=== PATIENT | female | born 1995 | race Caucasian/White ===

== ENCOUNTER 2023-09-22 07:10 | Emergency (ER) | payer BC, SELFPAY ==
[2023-09-22] VITALS (9 sets, daily range): BP systolic 116–151; BP diastolic 76–93; BMI 25.3
--- NOTE | 2023-09-22 07:26 | ED.GENMED ---
History of Present Illness
General
Chief Complaint: Throat Problem
Source: patient
Exam Limitations: none
Time Seen by Provider: 09/22/23 07:18
Nursing documentation reviewed up to this point in time: agreed with
History of Present Illness
History of Present Illness:
28-year-old female with no past medical history states she developed a fever 5 days ago, the next day she developed bilateral sore throat which has gotten progressively worse and her fevers persist. She went to urgent care yesterday had negative
strep a and her strep is pending. She denies N/V/C, hide watery diarrhea in the beginning but her stools have since become more formed and soft. She has a 4-year-old daughter that had a sore throat and fever 8 days ago but was better within 24
hours.
Past History
Past History
ED Past Medical History: None
ED Past Surgical History: None
Social History
Tobacco: Non-smoker
Alcohol: None
Personal:
Living: with family
Employment: Employed
Review of Systems
Review of Systems
Allergies reviewed?: Yes
All Other Systems: ROS reviewed and negative except as documented in HPI and ROS
Constitutional: Reports fever and fatigue; Denies chills
EENT: Reports sore throat
Respiratory: Denies trouble breathing
Cardiac: Denies chest pain
ABD/GI: Reports diarrhea (initially, but stools becoming more formed); Denies abdominal pain, nausea or vomiting
: Reports no symptoms
Musculoskeletal: Reports no symptoms
Skin: Reports no symptoms
Neurological: Reports no symptoms
Phy Exam
Physical Exam
Physical Exam:
GENERAL: No acute distress. A&Ox3.
CONSTITUTIONAL:Temp 99 3
EYES: clear, conjunctivae normal
Neck: Supple, tender non palpable node cervical
ENMT: moist mucus membranes, Pharynx: Bilateral moderate tonsillar swelling, not touching, uvula mildly swollen, no exudate. Swallowing well but with pain, speaking with 'hot potato voice.' No trismus. TMs normal.
RESPIRATORY: Regular respirations, nonlabored, lungs clear. Tachycardic rate 129
CARDIOVASCULAR: Regular rate and rhythm, no murmurs, no rubs.
GI: Soft, nontender, normal BS
MUSCULOSKELETAL: Moves with ease. Well perfused.
SKIN: Warm, dry, pink
PSYCH: Normal mood and affect. Well kept, interactive and appropriate
NEUROLOGIC: Awake, alert and oriented. No focal neurological deficits
Course
Orders/Labs/Results
Orders:
Orders
09/22/23 07:23
COVID-19 Antigen Urgent
Source: Nasal Swab
Rapid Strep Group A Urgent
MAHESH Source: Throat/Pharynx
Specimen Description:
Date Specimen was Collected: 09/22/23
Time Specimen was Collected: 07:19
09/22/23 07:26
Monotest Urgent
09/22/23 07:29
0.9% Sodium Chloride 1000 ml [Nss] 1,000 ml IV BOLUS
Ketorolac [Toradol] 15 mg IV NOW STA
09/22/23 07:33
Dexamethasone Sod Phosphate [Decadron] 10 mg IV NOW STA
09/22/23 07:36
Complete Blood Count/With Diff Urgent
Comprehensive Metabolic Panel Urgent
Throat Culture [Throat Culture, Comprehensive] Urgent
MAHESH Source: Throat/Pharynx
Specimen Description:
Date Specimen was Collected: 09/22/23
Time Specimen was Collected: 07:34
Abnormal Lab Results
09/22/23 09/22/23
07:26 07:36
WBC 15.4 H 10^3/uL
(4.8-10.8)
Hgb 11.9 L g/dL
(12.0-16.0)
Hct 34.8 L %
(37.0-47.0)
MCV 80.4 L fL
(81.0-99.0)
Abs Immat Gran (auto) 0.1 H 10^3/uL
(0-0.05)
Absolute Neuts (auto) 11.9 H 10^3/uL
(1.4-6.5)
Absolute Monos (auto) 1.2 H 10^3/uL
(0.1-0.6)
Immature Gran % 0.7 H %
(0-0.5)
Neutrophils % 77.3 H %
(42.2-75.2)
Lymphocytes % 13.2 L %
(20.5-51.1)
Glucose 102 H mg/dl
(70-99)
Monoscreen Positive A
(Negative)
09/22/23 07:36
09/22/23 07:36
Vital Signs
Initial and Last Documented VS:
Initial Vital Signs
Temp Pulse Resp BP Pulse Ox
99.3 F 129 18 151/93 98
09/22/23 07:15 09/22/23 07:15 09/22/23 07:15 09/22/23 07:15 09/22/23 07:15
Last Documented Vital Signs
Temp Pulse Resp BP Pulse Ox
98.1 F 109 16 120/76 97
09/22/23 10:31 09/22/23 12:15 09/22/23 10:31 09/22/23 12:00 09/22/23 12:15
MDM/Problems Addressed
Differential Diagnosis Includes:
Strep pharyngitis, [place], peritonsillar abscess, retropharyngeal abscess
MDM/Problems Addressed:
28-year-old female with no past medical history states she developed a fever 5 days ago, the next day she developed bilateral sore throat which has gotten progressively worse and her fevers persist. She went to urgent care yesterday had negative
strep a and her strep is pending. She denies N/V/C, hide watery diarrhea in the beginning but her stools have since become more formed and soft. She has a 4-year-old daughter that had a sore throat and fever 8 days ago but was better within 24
hours.
CBC: WC 15.4 with elevated monocytes and neutrophils
CMP normal
COVID test is negative
11:30 a.m.
Monotest is positive.
Referral to PCP hotline sent
Pt appears comfortable, swallowing and speaking well. Stable for discharge
Rx for Prednisone sent to her pharmacy
*Critical Care Note
Total Time (30-74mins, 75-104mins- exclusive of procedures): Not Applicable
ED Attending Note
-
Portions of this chart may have been created with voice recognition software.� Occasional wrong word or��sound alike� substitutions may have occurred due to the inherent limitations of voice recognition software.
Discharge Plan
Departure
Patient Disposition: Home (Routine Discharge)
Date of Disposition: 09/22/23
Time of Disposition: 11:57
Patient with high blood pressure during this ER visit?: No
Condition: Good
Discharge Problem:
Acute pharyngitis, Mononucleosis
Instructions: Sore Throat, Adult (DC), Mononucleosis (DC)
Prescriptions:
No Action
No Current Medications
0
Referrals:
NONE,* [Family Provider] -
Activity Restrictions/Additional Instructions:
As we discussed, someone from this hospital will call you to help you arrange for a primary care provider.
Continue ibuprofen 600 mg every 6 hours as needed for pain.
You were given a steroid here today called Decadron 10 mg, this should help with the swelling and pain over the next 3 days.
Return here immediately for inability to swallow your saliva or difficulty breathing or feeling more swelling in the throat.
For next 6 weeks, Avoid any impact to the left side and if this should occur, seek medical care immediately for increasing pain in the area as it could indicate injury to the spleen
Interventions
Interventions:
*Risk Screen - Suicide Last Done: 09/22/23 07:15
*General Assessment Last Done: 09/22/23 07:15
*Neglect/Abuse Screening Last Done: 09/22/23 07:15
ED- Fall Risk Assessment Last Done: 09/22/23 07:30
*ED COVID-19 Vaccine History Last Done: 09/22/23 07:15
*Nursing Disposition Last Done: 09/22/23 12:25
ED-EENT Assessment Last Done: 09/22/23 07:30
ED- Pulmonary Assessment Last Done: 09/22/23 07:30
Discharge Date and Time
Discharge Date/Time: 09/22/23 12:26
Print Language: PALESTINIAN
[2023-09-22] MEDS: DECADRON 10 MG IV (07:36)
[2023-09-22] MEDS: TORADOL 15 MG IV (07:37)
[2023-09-22] MEDS: NSS 1000 IV (07:37)
[2023-09-22 07:51] LABS: % Basophils 0.5 % (0-2); % Eosinophils 0.6 % (0-6); % Immature Granulocytes 0.7 % (0-0.5); % Lymphocytes 13.2 % (20.5-51.1); % Monocytes 7.7 % (1.7-9.3); % Neutrophils 77.3 % (42.2-75.2); Absolute Basophils 0.1 10^3/uL (0-0.2); Absolute Eosinophils 0.1 10^3/uL (0-0.7); Absolute Immature Granulocytes 0.1 10^3/uL (0-0.05); Absolute Monocytes 1.2 10^3/uL (0.1-0.6); Absolute Neutrophils 11.9 10^3/uL (1.4-6.5); Hematocrit 34.8 % (37.0-47.0); Hemoglobin 11.9 g/dL (12.0-16.0); Mean Corp Hgb Conc. 34.2 g/dL (33.0-37.0); Mean Corpuscular Hgb 27.5 pg (27.0-31.0); Mean Corpuscular Volume 80.4 fL (81.0-99.0); Mean Platelet Volume 9.6 fL (7.4-10.4); Nucleated Red Blood Cells % 0 %; Platelet Count 351 10^3/uL (130-400); Red Blood Cell Count 4.33 10^6/uL (4.20-5.40); Red Cell Dist. Width 13.2 % (11.5-14.5); White Blood Cell Count 15.4 10^3/uL (4.8-10.8)
[2023-09-22 08:02] LABS: ALT (SGPT) 15 U/L (0-35); AST (SGOT) 18 U/L (14-36); Albumin 4.2 g/dl (3.5-5.0); Alkaline Phosphatase 77 U/L (38-126); Blood Urea Nitrogen 8 mg/dl (7-17); Calcium 9.2 mg/dl (8.4-10.2); Carbon Dioxide 26 mmol/L (22-30); Chloride 103 mmol/L (98-107); Glucose 102 mg/dl (70-99); Potassium 3.9 mmol/L (3.5-5.1); Sodium 141 mmol/L (135-145); Total Bilirubin 1.1 mg/dl (0.2-1.3); Total Protein 7.6 g/dl (6.3-8.2); eGFR > 60.00
[2023-09-22 08:05] LABS: COVID-19 Antigen Negative (Negative)
[2023-09-22 11:32] LABS: Monotest Positive (Negative)
== END 2023-09-22 12:26 | disposition home or self-care (01) ==
LOC: EMR 07:10
PROVIDERS: Registered Nurse; EMERGENCY PHYSICIAN Emergency Medicine
DX: J02.9 Acute pharyngitis, unspecified (principal); B27.90 Infectious mononucleosis, unspecified without complication
CPT/HCPCS: 99283; 96374; 96375; 96361; 80053; 85025; 86308; 87070; 87811; 87880

== ENCOUNTER 2024-04-19 02:16 | Day surgery (SDC) | payer BC, SELFPAY ==
[2024-04-18 18:34] VITALS: BP 133/79
[2024-04-18 18:53] LABS: % Basophils 0.2 % (0-2); % Eosinophils 1.5 % (0-6); % Immature Granulocytes 0.5 % (0-0.5); % Lymphocytes 21.4 % (20.5-51.1); % Monocytes 6.9 % (1.7-9.3); % Neutrophils 69.5 % (42.2-75.2); Absolute Eosinophils 0.2 10^3/uL (0-0.7); Absolute Immature Granulocytes 0.1 10^3/uL (0-0.05); Absolute Lymphocytes 2.6 10^3/uL (1.2-3.4); Absolute Monocytes 0.8 10^3/uL (0.1-0.6); Absolute Neutrophils 8.3 10^3/uL (1.4-6.5); Hematocrit 34.1 % (37.0-47.0); Hemoglobin 11.4 g/dL (12.0-16.0); Mean Corp Hgb Conc. 33.4 g/dL (33.0-37.0); Mean Corpuscular Hgb 28.1 pg (27.0-31.0); Mean Corpuscular Volume 84.2 fL (81.0-99.0); Mean Platelet Volume 9.5 fL (7.4-10.4); Nucleated Red Blood Cells % 0 %; Platelet Count 291 10^3/uL (130-400); Red Blood Cell Count 4.05 10^6/uL (4.20-5.40); Red Cell Dist. Width 13.4 % (11.5-14.5)
[2024-04-18 19:25] LABS: ALT (SGPT) 14 U/L (0-35); AST (SGOT) 17 U/L (14-36); Albumin 3.7 g/dl (3.5-5.0); Alkaline Phosphatase 64 U/L (38-126); Blood Urea Nitrogen 7 mg/dl (7-17); Calcium 9.1 mg/dl (8.4-10.2); Carbon Dioxide 22 mmol/L (22-30); Chloride 103 mmol/L (98-107); Glucose 94 mg/dl (70-99); Lipase 53 U/L (23-300); Potassium 3.7 mmol/L (3.5-5.1); Sodium 134 mmol/L (135-145); Total Bilirubin 0.5 mg/dl (0.2-1.3); Total Protein 6.8 g/dl (6.3-8.2); eGFR > 60.00
[2024-04-18 21:42] LABS: Erythrocyte Sed Rate 32 mm/hour (0-20)
[2024-04-18 22:00] VITALS: BP 111/69; BMI 30.3
--- NOTE | 2024-04-18 22:29 | ED.GENMED ---
History of Present Illness
General
Chief Complaint: Abdominal Pain
Source: patient
Exam Limitations: none
Time Seen by Provider: 04/18/24 21:18
History of Present Illness
History of Present Illness:
This is a 29-year-old female 17 weeks who presents with right lower quad abdominal pain. Patient states that she started with some generalized abdominal pain that she thought was maybe something she ate. Today the pain has persisted
and worsened over the last 48 hours into the right lower quadrant. The pain is getting a bit worse. No fevers. No vomiting. She did feel little 'queasy'. No stool changes. No dysuria.
Past History
Past History
ED Past Medical History: None
ED Past Surgical History: None
Social History
Tobacco: Non-smoker
Alcohol: None
Personal:
Living: with family
Employment: Employed
Phy Exam
Physical Exam
Physical Exam:
CONSTITUTIONAL Patient alert and oriented to person, place and time. Well-appearing. Vital signs reviewed.
HEAD atraumatic, normocephalic.
EYES eyelids normal to inspection, Extraocular muscles intact, Conjunctiva normal, Sclera normal.
NECK normal range of motion, Trachea midline, no jugular venous distention.
RESPIRATORY CHEST No respiratory distress noted, Chest expansion equal, Bilateral breath sounds clear.
CARDIOVASCULAR regular rate and rhythm, Heart sounds normal.
ABDOMEN gravid uterus, moderate right lower quadrant/McBurney's point tenderness. No distention. Normal bowel sounds
BACK normal inspection, no obvious deformities
UPPER EXTREMITY range of motion normal, Motor strength normal, no cyanosis, no edema.
LOWER EXTREMITY range of motion normal, Motor strength normal, no cyanosis, no edema.
NEURO Speech normal, No focal motor deficits, [place] coma scale 15, Memory normal, Cranial Nerves intact to screening exam.
SKIN skin warm, dry, and normal in color.
Course
Orders/Labs/Results
Orders:
Orders
04/18/24 18:39
US Abdomen - Appendix Only Urgent
Comment:
Reason For Exam: RLQ pain
US Limited Urgent
Reason For Exam: RLQ pain
04/18/24 18:45
C-Reactive Protein Urgent
Comment: ADD ON
Complete Blood Count/With Diff Urgent
Comprehensive Metabolic Panel Urgent
Erythrocyte Sed Rate Urgent
Comment: ADD ON
Lipase Urgent
04/18/24 21:20
Add On- LAB Urgent
Tests Added?: esr, CRP
04/18/24 22:39
Urinalysis Reflex To Culture Urgent
Date Specimen was Collected: 04/18/24
Time Specimen was Collected: 22:37
Urine Microscopic Reflex Cult Urgent
Urine Culture Urgent
MAHESH Source: U
Specimen Description:
Date Specimen was Collected: 04/18/24
Time Specimen was Collected: 22:37
04/19/24 00:00
MR Abdomen Without Contrast Urgent
Reason For Exam: RLQ abd pain, suspected appendicitis, 17 wks
OK for patient to be off Cardiac Monitoring for MRI: Yes
Recent pill cam endoscopy?: No
04/19/24 00:16
Ampicillin/Sulbactam 3 G [Unasyn] 3 gm 0.9% Sodium Chloride 100 ml [Nss] 100 ml IV NOW
Abnormal Lab Results
04/18/24 04/18/24
18:45 22:39
WBC 12.0 H 10^3/uL
(4.8-10.8)
RBC 4.05 L 10^6/uL
(4.20-5.40)
Hgb 11.4 L g/dL
(12.0-16.0)
Hct 34.1 L %
(37.0-47.0)
Abs Immat Gran (auto) 0.1 H 10^3/uL
(0-0.05)
Absolute Neuts (auto) 8.3 H 10^3/uL
(1.4-6.5)
Absolute Monos (auto) 0.8 H 10^3/uL
(0.1-0.6)
ESR 32 H mm/hour
(0-20)
Sodium 134 L mmol/L
(135-145)
Creatinine 0.5 L mg/dL
(0.6-1.0)
C-Reactive Protein 33.50 H mg/L
(0.0-10.00)
Urine Ketones 1+ A
(Negative)
Ur Occult Blood Reflex 2+ A
(Negative)
Leukocyte Esterase Rfl 2+ A
(Negative)
Urine WBC (Reflex) 16-20 A /HPF
(0-5)
Urine Bacteria (Reflex) Many A
(Negative)
Urine Yeast Moderate A
(Negative)
04/18/24 18:45
04/18/24 18:45
Vital Signs
Initial and Last Documented VS:
Initial Vital Signs
Temp Pulse Resp BP Pulse Ox
98.3 F 100 18 133/79 100
04/18/24 18:34 04/18/24 18:34 04/18/24 18:34 04/18/24 18:34 04/18/24 18:34
Last Documented Vital Signs
Temp Pulse Resp BP Pulse Ox
98.3 F 100 18 112/65 97
04/18/24 18:34 04/18/24 18:34 04/18/24 18:34 04/19/24 00:00 04/19/24 00:30
MDM/Problems Addressed
MDM/Problems Addressed:
Abdominal pain, second trimester , acute appendicitis
*Radiology
Radiology exam reviewed: radiology read reviewed
*Pulse Oximetry
Patient hypoxic: no
*Critical Care Note
Total Time (30-74mins, 75-104mins- exclusive of procedures): 35 minutes
Data Reviewed
Source: patient
Further Testing Considered But Not Given:
Consider CT but given her and ultrasound findings, will not proceed given the risks
Patient Management
Discussion with other providers: Shirt Ironer (Case discussed with general surgery) and Radiologist (Case discussed with radiology. Confirms appendicitis)
Escalation/DeEscalation of care consider admission/obs:
Case discussed with OB
29-year-old female who presents with right lower quadrant abdominal pain. Ultrasound suggest acute appendicitis. She also has an elevated white count, ESR and CRP. She does appear quite well. Question whether antibiotics alone will be sufficient
but will defer to general surgery.
Update Note
Update Note:
Patient seen by OB and case discussed several times with OB and surgery. MR confirms appendicitis. General surgery to take to the operating room
ED Attending Note
-
Portions of this chart may have been created with voice recognition software.� Occasional wrong word or��sound alike� substitutions may have occurred due to the inherent limitations of voice recognition software.
Discharge Plan
Departure
Patient Disposition: Admit
Date of Disposition: 04/18/24
Time of Disposition: 22:35
Admit to: Med/Surg and OR
Presentation/result/management discussed w/ accepting MD/DO: Dr Raymond
Discharge Problem:
Acute appendicitis
Prescriptions:
No Action
Vitamin 27 mg iron- 800 mcg Tablet
1 tab PO DAILY
Referrals:
NONE,* [Family Provider] -
Interventions
Interventions:
*Risk Screen - Suicide Last Done: 04/18/24 18:34
*General Assessment Last Done: 04/18/24 18:34
*Neglect/Abuse Screening Last Done: 04/18/24 18:34
ED- Fall Risk Assessment Last Done: 04/18/24 22:01
*ED COVID-19 Vaccine History Last Done: 04/18/24 18:34
YL-Lkhswc-Futumkjlwl Assessment Last Done: 04/18/24 22:01
Discharge Date and Time
Print Language: INDIAN
[2024-04-18 22:46] LABS: Urine Albumin Negative (Neg - Trace); Urine Bilirubin Negative (Negative); Urine Character Clear (Clear); Urine Color Yellow; Urine Glucose Negative (Negative); Urine Ketone 1+ (Negative); Urine Leukocyte 2+ (Negative); Urine Nitrite Negative (Negative); Urine Occult Blood 2+ (Negative); Urine Urobilinogen Negative (Neg - 1+)
[2024-04-18 22:52] LABS: Urine Squamous Cell >30 /LPF (Few)
[2024-04-18 22:54] LABS: Urine Red Blood Cell 0-2 /HPF (0-2)
[2024-04-18 22:55] LABS: Urine White Cell 16-20 /HPF (0-5)
[2024-04-18 22:56] LABS: Urine Bacteria Many (Negative); Urine Yeast Moderate (Negative)
[2024-04-18 23:00] VITALS: BP 118/72
--- NOTE | 2024-04-18 23:24 | CON.MD ---
Addendum entered and electronically signed by Laura German MD 04/19/24 07:39:
35 minutes spent in review of images, labs, discussion with patient and documentation
Original Note:
Consultation - Medical
-
29yo @ 17.0wks EDC 09/26/24, receives care at [facility], presented to this ED with c/o worsening abdominal pain over the last 2 days. Was generalized now isolated to RLQ. She has had nausea and decreased appetite. No emesis. She has no other bothersome
symptoms. No fever. She denies complications with this other than new finding of small fibroid.
PMHx: NOne
PSHx: NOne
POBHx: x2
All: NKDA
Shx: Neg x3
FHx: NC
Meds: PNV
Vitals and Labs Below.
Gen: lying in bed, nad
Abd: Per ED MD exam there is moderate ttp in the RLQ
Appendix US: Dilated tubular structure in the RLQ likely dilated appendix 1.1cm with wall thickening and mild hyperermia
US: Viable fetus, Anterior uterine fibroid 2.1cm, RAGINI nml, Cvx closed/Long. Right ovary 2.2cm. Left ovary not seen
UCx Pending.
A/P: 29yo @ 17.0wks with RLQ concern for appendicitis
- Case reviewed over TT with Gen Surg congressional assistant. Recommendation if appendicitis is confirmed is to proceed with surgery tonight. He would like patient to have a MRI first to confirm appendicitis prior to proceeding with surgery. Antibiotic therapy
alone is suboptimal mgmt and runs the risk for recurrence and/or appendiceal perforation which can increase risk for complications. This information was relayed to the patient. She is leaning toward surgery but wants to discuss with her
family first. I answered her questions the best I could but did explain that should she proceed with surgery, then Gen Surgeon will be in to review consents with her. Advised that the 2nd trimester is the safest time in to have surgery.
Reviewed that we will check FHR after the procedure. If she needed to be admitted then FHR is checked every day that she is here.
Vital Signs / Labs
-
Vital Signs and Labs:
Temp Pulse Resp BP Pulse Ox
98.3 F 100 18 118/72 98
04/18/24 18:34 04/18/24 18:34 04/18/24 18:34 04/18/24 23:00 04/18/24 23:00
04/18/24 18:45
04/18/24 18:45
04/18/24 04/18/24
18:45 22:39
WBC 12.0 H
RBC 4.05 L
Hgb 11.4 L
Hct 34.1 L
Abs Immat Gran (auto) 0.1 H
Absolute Neuts (auto) 8.3 H
Absolute Monos (auto) 0.8 H
ESR 32 H
Sodium 134 L
Creatinine 0.5 L
C-Reactive Protein 33.50 H
Urine Ketones 1+ A
Ur Occult Blood Reflex 2+ A
Leukocyte Esterase Rfl 2+ A
Urine WBC (Reflex) 16-20 A
Urine Bacteria (Reflex) Many A
Urine Yeast Moderate A
[2024-04-19] VITALS (14 sets, daily range): BP systolic 98–118; BP diastolic 52–74; BMI 30.2
[2024-04-19] MEDS: UNASYN IV (00:35)
--- NOTE | 2024-04-19 03:05 | CON.GS ---
Consultation
-
Requesting Provider: Mike
Performing Provider: Mandi
Reason for Consultation: Acute appendicitis
Medical History
-
Chief Complaint: Abd pain
History of Present Illness:
29F, 17 wks , with acute onset abd pain that began as generalized / khris-umblical pain and migrated toward the right lower quadrant. Pain began 2 days ago and is constant and progressive. Denies f/c/v, endorses nausea/anorexia. Denies
changes to urine or stool.
Past Medical History
Past Medical History: Reviewed & Noncontributory
Past Surgical History: Reviewed & Noncontributory
Social History
Tobacco: Non-Smoker
Alcohol: None
Drug: None
Personal:
Living: With Family
Employment: Employed
Family History
Family History: Reviewed & Noncontributory
Allergies / Home Medications
Allergy/AdvReac Type Severity Reaction Status Date / Time
No Known Allergies Allergy Verified 04/18/24 18:37
�Medication �Instructions �Recorded �Confirmed �Type
vits no.124-ferrous fum 1 tab PO DAILY 04/18/24 04/18/24 History
27 mg iron-folic acid 800 mcg
tablet ( Vitamin)
Review of Systems
-
A 10 point review of systems was completed, and was negative except as per HPI.
Physical Exam
Vital Signs
Temp Pulse Resp BP Pulse Ox
98.3 F 100 18 106/66 97
04/18/24 18:34 04/18/24 18:34 04/18/24 18:34 04/19/24 02:00 04/19/24 02:15
04/17/24 04/18/24 04/19/24
06:59 06:59 06:59
Actual Weight 75 kg
Body Mass Index (BMI) 30.3
Lab Results
04/18/24 18:45
04/18/24 18:45
WBC 12.0 10^3/uL (4.8-10.8) H 04/18/24 18:45
Hgb 11.4 g/dL (12.0-16.0) L 04/18/24 18:45
Hct 34.1 % (37.0-47.0) L 04/18/24 18:45
Plt Count 291 10^3/uL (130-400) 04/18/24 18:45
Abs Immat Gran (auto) 0.1 10^3/uL (0-0.05) H 04/18/24 18:45
Neutrophils % 69.5 % (42.2-75.2) 04/18/24 18:45
Physical Exam
General: Well Developed, Well Nourished and No Apparent Distress
GI: Soft, Non Distended, Tender (ttp to rlq) and Other (gravid uterus)
Skin: Warm and Dry
Neuro: AO x 3
Psych: Calm
Data Reviewed
-
Ultrasound: Image Personally Visualized and interpreted, Report Reviewed by me, Discussed with Physician and Discussed with Patient
MRI: Image Personally Visualized and interpreted, Report Reviewed by me, Discussed with Physician and Discussed with Patient
Labs: Labs Reviewed by me, Discussed with Physician and Discussed with Patient
Assessment / Plan
-
29F with acute appendicitis at 17 wks
AF, mild tachycardia to 100s, normotensive
WBC 12K, ESR and CRP elevated
UA with bacteria/WBC, but >30 squams, likely contaminated sample
US suggestive of acute appendicitis
MRI with dilated appendix with surrounding edema, high ly suggestive of acute appendicitis
Risks of surgical vs non-surgical mgmt were discussed. Specifically with non-surgical mgmt the risks of perforation, early labor and were discussed. With surgical mgmt risks such as bleeding, post-op infection, iatrogentic injury to
intra-abdominal structures including uterus/fetus, maternal hypotension, early labor and were discussed. Guidelines of major international surgical societies such as WSES (Harrison 2019), EAES (2021), and current SAGES guidelines are
unanimous in recommending surgical mgmt. Pt verbalized understanding and freely signed the consent.
OCTOR for lap appy
Unasyn
SCDs
--- NOTE | 2024-04-19 03:55 | W.IMMPOSTOP ---
Surgical Immed Post Op Note
-
Primary Surgeon: Mandi
Pre-op Diagnosis: Acute appendicitis
Post-op Diagnosis: Same
Procedure Performed: Laparoscopic appendectomy
Anesthesia Type: GETA
Specimen / Cultures: Appendix
Estimated Blood Loss: 2cc
Complications: None immediate
Operative Findings: Gravid uterus, inflamed non-perforated appendix, scant turbid fluid in pelvis and right lower quadrant suctioned
--- NOTE | 2024-04-19 04:00 | OR.RPT ---
Operative Report
Operative Report
Primary Surgeon: Mandi
Pre-op Diagnosis: Acute appendicitis
Post-op Diagnosis: Same
Procedure Performed: Laparoscopic appendectomy
Anesthesia Type: GETA
Specimen / Cultures: Appendix
Estimated Blood Loss: 2cc
Complications: None immediate
Operative Findings: Gravid uterus, inflamed non-perforated appendix, scant turbid fluid in pelvis and right lower quadrant suctioned
Date of Surgery: 04/19/24
Indications: This 29F at 17 weeks developed right lower quadrant abdominal pain and on workup was found to have acute appendicitis. Laparoscopic appendectomy was elected.
Description of procedure: The patient was placed on the operating table in the supine position. General anesthesia was induced. A time-out was completed verifying correct patient, procedure, site, positioning, and special equipment prior to
beginning this procedure. An orogastric tube was placed. The abdomen was prepped and draped in the usual sterile fashion. A stab incision was made in left upper quadrant and the Veress needle was inserted. Proper position was confirmed by aspiration
and saline meniscus test. The abdomen was insufflated with carbon dioxide to a pressure of 12 mmHg. The patient tolerated insufflation well.
A 5mm optical trocar was then inserted at the umbilicus under direct vision. The laparoscope was inserted and the abdomen inspected. No injuries from initial trocar placement or Veress needle insertion were noted. The gravid uterus was visualized
and traditional trocar placements were adjusted to accommodate it. A second 5mm trocar was placed a hands breadth lateral to the umbilicus on the right under direct vision and another 5mm trocar was placed in the right lower quadrant a hand's
breadth inferior to the second trocar. The umbilical trocar was upsized to a 12mm. The abdomen was inspected and no abnormalities were found. The table was placed in the Trendelenburg position with the right side up. The tip of the appendix was
gently grasped with an atraumatic grasper and retracted toward the patient�s feet and abdominal wall. This maneuver exposed the appendiceal blood supply which was controlled with the voyant device. Following this, a laparoscopic linear cutting
stapler with a 45mm mcelroy load was deployed and used to transect the appendix at its base. The appendix was placed in an endoscopic retrieval bag, removed through the umbilical port, and passed off the table as a specimen.
We then turned our attention to the staple line, which was noted to be hemostatic. Scant turbid fluid was suctioned from the pelvis and right lower quadrant. The umbilical trocar site was closed at the fascial level laparoscopically with 2-0 PDS
under direct vision. Secondary trocars were removed under direct vision and noted to be hemostatic. The laparoscope was withdrawn and the abdomen was allowed to collapse. The skin was closed with subcuticular sutures of 4-0 monocryl and topical skin
adhesive. The orogastric tube was removed.
The patient tolerated the procedure well and was taken to the postanesthesia care unit in stable condition.
--- NOTE | 2024-04-19 05:58 | PTCARENOTE ---
Dopplers completed. heart rate mid-140s. MD aware. No further FHT assessments needed, per MD.
--- NOTE | 2024-04-19 07:34 | W.PN.UPDATE ---
Update Note
Progress Note Update
FHR obtained when patient arrived on floor- 140bpm
Per Surgeon, he will see patient later this morning and anticipate discharge home then
[2024-04-19] MEDS: PRENATAL PLUS 1 TABLET PO (08:12)
[2024-04-19] MEDS: TYLENOL 1000 MG PO (08:38)
--- NOTE | 2024-04-19 09:59 | W.PN.GS2 ---
Today's Communication / Plan
-
DC
Assessment / Plan
-
29F POD0 s/p lap appy for acute appendicitis at 17 wks
AFVSS, meets criteria for DC
DC home
Subjective Data
-
Date of Service: April 19, 2024
AFVSS, ambulating, voiding, celso PO, lupe controlled
Objective Data
-
Intake and Output
04/18/24 04/19/24 04/20/24
06:59 06:59 06:59
Intake Total 50 / 50
Output Total 0 / 0 400 / 400
Balance 50 / 50 -400 / -400
Intake:
IV fluids (Total) 50 / 50
normosol 50 / 50
Output:
Urine, Voided 0 / 0 400 / 400
Vital Signs
Temp Pulse Resp BP Pulse Ox
98.2 F 69 16 98/56 96
04/19/24 08:29 04/19/24 08:29 04/19/24 08:29 04/19/24 08:29 04/19/24 05:16
Lab Results
04/18/24 18:45
04/18/24 18:45
Calcium 9.1 mg/dl (8.4-10.2) 04/18/24 18:45
Total Bilirubin 0.5 mg/dl (0.2-1.3) 04/18/24 18:45
AST 17 U/L (14-36) 04/18/24 18:45
ALT 14 U/L (0-35) 04/18/24 18:45
Alkaline Phosphatase 64 U/L (38-126) 04/18/24 18:45
Total Protein 6.8 g/dl (6.3-8.2) 04/18/24 18:45
Albumin 3.7 g/dl (3.5-5.0) 04/18/24 18:45
Physical Exam
-
Gen: NAD
Abd: soft, gravid uterus, approp ttp at incisions, incisios cdi
Patient has a whitt catheter: No
Patient has a central line: No
--- NOTE | 2024-04-19 10:03 | W.DS.TRANS ---
DC Summary - [employer]
-
Discharge Instructions:
Discharge Diagnosis/Procedures Acute appendicitis
Diet No restrictions
Activity No strenuous activity
Driving Restrictions No driving for 24 hours
Bathing Restrictions OK to Shower
Wound Care Allow skin glue to flake off on its own
Instructions: Appendectomy - Discharge instructions
Stand-Alone Forms:
Changes to Home Medications: No
Discharge Medications:
DC Medications w/original date entered in [employer]
vits [id number] fum 27 mg iron-folic acid 800 mcg tablet ( Vitamin) 1 tab PO DAILY 04/18/24
Home Medication Changes
Pending Results: No
--- NOTE | 2024-04-19 10:39 | CM ---
Met with pt at bedside
Pt reports she lives with her and 2 young children in a 2 story home; 2 steps to enter, FF set-up
Independent, employed - works from home, drives
DME - none
SNF/HH - no past hx
Has ride at discharge
PCP - none at present
Pharm - [facility] in [place]
care - [facility]
Plan - anticipate home no needs
== END 2024-04-19 11:06 | disposition home or self-care (01) ==
LOC: SDS 02:16
PROVIDERS: Emergency Medicine; ATTENDING PHYSICIAN Emergency Medicine
DX: O26.892 Other specified pregnancy related conditions, second trimester (principal); O99.612 Diseases of the digestive system complicating pregnancy, second trimester; K35.80 Unspecified acute appendicitis; Z3A.17 17 weeks gestation of pregnancy
CPT/HCPCS: 44970; 88304; 74181; 76705; 76815; 80053; 81003; 81015; 83690; 85025; 85652; 86140; 87086; 99291; C1776